=== PATIENT | male | born 2000 | race Caucasian/White ===

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

== ENCOUNTER 2019-07-27 17:39 | Emergency (ER) | payer BC, SELFPAY ==
[2019-07-27 17:41] VITALS: BP 149/90; PULSE 59; RESP 18; TEMP 36.3; O2SAT 97; BMI 22.2
--- NOTE | 2019-07-27 17:54 | ED.VIS.GEN ---
History of Present Illness Chief Complaint: Foreign Body Informant: Patient, Family Onset: Today Current Severity: Mild Narrative: Patient reports he has some roast beef stuck in his esophagus, eating roast beef when it got stuck midsternal area, he cannot pass that sensation he is trying to drink water it comes up, he has had this happen before but usually is able to pass the food bolus, he did not eat anything with bones just roast beef, he was not been seen by GI for this condition as again every time this happens usually the food will pass this all occurred about 30 minutes ago he is in no distress he is having no stridor no drooling he has no past history no meds no allergies Past Medical History - Allergies and Home Meds Allergies/Adverse Reactions: Allergies No Known Allergies Allergy (Verified 07/27/19 17:40) Primary Care Physician: Care Physician,No Primary [Primary Care Provider] - Past Medical History: - - Denies any past history reports this is happened to him before usually the food will pass Smoking Status: Never smoker Review of Systems General: Denies: Chills, Fever, Sweats Eyes: Denies: Visual changes - bilaterally, Diplopia ENT: Denies: Rhinorrhea, Sore throat Cardiovascular: Denies: Chest pain, Palpitations Respiratory: Denies: Dyspnea, Cough, Dyspnea on exertion Gastrointestinal: Denies: Abdominal pain, Nausea, Vomiting, Diarrhea, Melena, Hematochezia Genitourinary: Denies: Dysuria, Hematuria, Frequency Musculoskeletal: Denies: Back pain, Extremity Pain Skin: Denies: Rash, Wounds Neurological: Denies: Headache, Weakness, Numbness Physical Exam Vital Signs/Narrative: Vital Signs Temp Pulse Resp BP Pulse Ox 07/27/19 17:41 97.4 F L 59 L 18 149/90 H 97 General: Well nourished, Well developed, No Acute Distress Head: Normocephalic, Atraumatic Eyes: Perrl, EOMI ENT: Moist mucous membranes, No rhinorrhea Neck: Supple, Nontender Cardiovascular: Regular rate, Regular rhythm, No murmurs Respiratory: No distress, CTA bilaterally, Chest nontender Abdomen: Soft, Nontender, Nondistended, Normal bowel sounds Back: Nontender, Normal Inspection Extremities: Nontender, No edema Skin: Normal color, No rash Neurological: Alert, Oriented x3, Cranial nerves II-XII grossly intact, Normal Strength, Normal Sensation Psychological: Normal affect, Normal Mood Diagnostic/Tx/Re-eval - Medical Decision Making Explained to the mother and the patient that the specialist who would normally see him for this condition at this institution are not available they understand I explained he should be seen at a tertiary care center in [facility] they understand and will consider which of those centers they would prefer and go to 1 of those tertiary care centers today for further evaluation treatment the mother prefers potentially going to [facility] she works there, we will try to call the facility to determine if GI is available if not she will likely take him to [facility] Spoke with the [facility] emergency department indicate they do have GI coverage and understand the patient will be coming there for evaluation Home stable Impression food impaction ED Disposition - Plan for ED Patient: Diagnosis: Food impaction of esophagus Instructions: ESOPHAGEAL FOREIGN BODY, Resolved Referrals: Care Physician,No Primary [Primary Care Provider] - Additional Instructions: Please go directly today to [facility] or [facility] to be seen for this condition, as this is not resolved
--- NOTE | 2019-07-27 18:27 | ED.RN ---
DR. MORALES APPROACHED REGARDING PAGING SURGEONS PRIOR TO DISCHARGING PATIENT TO ANOTHER FACILITY. PER DR. SALGUERO THE TWO SURGEONS THAT ARE ON RIGHT NOW WILL NOT SCOPE PATIENTS.
--- NOTE | 2019-07-27 18:31 | ED.RN ---
PT NOW ABLE TO SWALLOW WATER AND BELIEVES THAT FOOD HAS PASSED.
--- NOTE | 2019-07-27 18:33 | ED.RN ---
DR. MORALES AWARE THAT PT BELIEVES FOOD HAS PASSED AND THAT PT IS ABLE TO SWALLOW WATER WITHOUT ANY ISSUES. DR. MORALES STATES TO HAVE PT FOLLOW UP WITH GI DOCTOR AND FOLLOW UP IN [facility] IF HE HAS ANY FURTHER ISSUES TONIGHT. PT AND PT'S FAMILY VERBALIZE AN UNDERSTANDING. REVIEWED D/C INSTRUCTIONS, FOLLOW UP CARE, AND S/S THAT WOULD WARRANT A RETURN TO THE ED WITH PT. PT VERBALIZED AN UNDERSTANDING AND DENIES FURTHER QUESTIONS FOR THIS RN. PT SKIN P/W/D, RESP EVEN AND UNLABORED, PT A&O X 3, NO DISTRESS NOTED. PT AMBULATED OUT OF ED, GAIT STEADY.
[2019-07-27 18:36] VITALS: RESP 16
== END 2019-07-27 18:36 | disposition home or self-care (01) ==
LOC: ED 18:17
PROVIDERS: Emergency Provider Emergency Medicine
DX: T18.128A Food in esophagus causing other injury, initial encounter (principal)
CPT/HCPCS: 99282

== ENCOUNTER 2023-10-07 12:40 | Day surgery (SDC) | payer BC, SELFPAY ==
--- NOTE | 2023-10-06 | ESO_PTH ---
PATHOLOGY RESULTS PATIENT: RICKY KING LOC: EN U#:[id number] AGE/SX: 23/M ROOM: RE10/07/[address]: Dr. Too Red DO : 2000 BED: DIS: 10/07/2023 SPEC #: [id number] RECD: 10/09/23 08:10 STATUS: COSTA REWilliam #: [id number] TIFFANIE: 10/06/23 00:[address]: Too Red DEPT: SURGICAL PATHOLOGY RECD BY: Suzy Brewer ENTERED: 10/09/23 08:10 SP TYPE: OLMAN BAHENA DR: Dr. Boaz Johns DO Tissues: Esophagus, NOS Procedures: Special Stain Group II Surgery Specimen Level IV Alcian Blue/PAS (control) HEADER OPERATION: EGD with basket retrieval and biopsy PRE-OP DIAGNOSIS: Foreign body TISSUE SUBMITTED: Distal esophagus biopsy MICROSCOPIC DIAGNOSIS Distal esophagus, biopsy: Fragments of gastroesophageal mucosa with ulceration, acute and chronic inflammation, granulation tissue reaction and reactive epithelial changes. Intestinal metaplasia (goblet cell metaplasia) not identified. See comment. TONEY:mari 10/10/2023 COMMENT Alcian blue/PAS stain with matched control is used in the evaluation of the specimen. The specimen predominantly consists of squamous mucosa. Case has been reviewed in consultation with Dr. Valentine who concurs with the above diagnosis. IDC:AM MICROSCOPIC DESCRIPTION Slides are reviewed. GROSS DESCRIPTION Received in fixative is one container labeled with the patient's name and designated distal esophagus biopsy. The specimen consists of multiple irregular fragments of light martin soft tissue that in aggregate measure 0.5 x 0.5 x 0.1 cm. The specimen is totally submitted in one cassette. / TONEY:mari 10/09/2023 TC:2 CPT: 93969, 05043
[2023-10-07] VITALS (8 sets, daily range): BP systolic 114–151; BP diastolic 70–113; PULSE 72–106; RESP 16–18; TEMP 36.6; O2SAT 96–100; BMI 22.8
--- NOTE | 2023-10-07 12:56 | EX.ED.DYSGE1 ---
HPI <JOSE Tobin - Last Filed: 10/07/23 17:03> History of Present Illness Chief Complaint: Foreign Body Narrative Narrative: Patient is a 23-year-old male with no send medical history who presents to the emergency department for concern of food bolus stuck in his throat. Patient states he was eating sausage soup, evidence for spice he swallowed a piece of sausage and felt to get stuck. He has been trying to water however it immediately comes up. He cannot vomit. He is spitting out his saliva. He has had this happen in the past. Patient had a food bolus in 2018, had a EGD with a dilation on [address] [facility]. Patient has had minimal problems since then. Patient denies any chest pain or shortness of breath. PFSH <JOSE Tobin - Last Filed: 10/07/23 17:03> [facility] Medical History (Updated 10/07/23 @ 16:[address] Gage Friend, DO) MDD (major depressive disorder), single episode, severe Home Medications multivitamin with minerals 1 ea PO DAILY 07/27/19 [History Last Taken Unknown] pantoprazole 40 mg tablet,delayed release (Protonix) 40 mg PO .daily #30 tabs 10/07/23 [Rx Last Taken Unknown] Allergy/AdvReac Type Severity Reaction Status Date / Time No Known Allergies Allergy Verified 10/07/23 12:43 Family History (Updated 09/14/18 @ 10:33 by JOSE Damon) Father Hyperlipemia Social History Smoking Status: Never smoker ROS <JOSE Tobin - Last Filed: 10/07/23 17:03> ROS ED ROS Narrative Constitutional: Negative for fever, chills, weight loss, weakness Eyes: Negative for vision loss, vision change, double vision ENT: Negative for any sore throat, ear pain, congestion Cardiovascular: Negative for any chest pain, tightness, palpitations Respiratory: Negative for any cough, sputum production, hemoptysis, dyspnea, dyspnea on exertion, orthopnea Gastrointestinal: Negative for any abdominal pain, nausea, vomiting, diarrhea, constipation, blood in stool, blood in vomit. Positive for difficulty swallowing : Negative for any urinary frequency, dysuria, retention, blood in urine Muscle skeletal: Negative for any myalgias, arthralgias, neck pain, back pain Neurological: Negative for any headache, syncope, paresthesias, dizziness Skin: Negative for any rashes, lumps, itching, abrasions, lacerations Psychiatric: Negative for any depression, anxiety, stress, suicidal ideation, homicidal ideation Hematologic: Negative for any easy bruising, excessive bruising, easy bleeding Allergies: Negative for any eczema, hives, rash EXAM <JOSE Tobin - Last Filed: 10/07/23 17:03> Physical Exam Narrative Exam Narrative: Vital signs reviewed. Patient is in no distress. Patient is able to spit up his saliva. HEET: Head normocephalic atraumatic, TMs clear bilaterally. Posterior pharynx is clear, moist mucous membranes. Nares clear bilaterally. Neck: Supple with no lymphadenopathy or tenderness. No signs of meningismus. Cardiac: Regular rate and rhythm no murmurs gallops or rubs, equal peripheral pulses bilaterally. Respiratory: Lungs clear to auscultation bilaterally. No chest tenderness. Abdomen: Soft, nontender, nondistended. No abdominal bruit or pulsatile masses. No hepatosplenomegaly Extremities: No peripheral edema, no signs of gross trauma or deformity. Active full range of motion of all extremities. Neuro: Cranial nerves II through XII intact, no focal neurological deficits. Skin: Clean dry and intact with no rash, purpura, petechiae, vesicles or pustules. Backs/flank: No CVA tenderness, no midline spinal tenderness, no deformity. Psych: Normal mood and affect. No SI, HI or acute psychosis. Const Vital Signs: 10/07/23 12:40 10/07/23 13:15 10/07/23 16:14 Temperature 98 F Temperature Source Temporal Pulse Rate 72 72 Respiratory Rate 18 16 Respiratory Effort Normal Non-Labored Respiratory Pattern Normal Blood Pressure 151/113 H 133/78 H Blood Pressure Mean 125 96 Blood Pressure Source Blood Pressure Position Blood Pressure Location Baseline BP Pulse Ox 100 98 Oxygen Delivery Method Room Air Room Air 10/07/23 17:02 10/07/23 17:03 10/07/23 17:05 Temperature 97.8 F Temperature Source Temporal Pulse Rate 73 106 H 106 H Respiratory Rate 16 16 16 Respiratory Effort Respiratory Pattern Normal Blood Pressure 128/74 H 127/86 H 127/83 H Blood Pressure Mean 92 99 97 Blood Pressure Source Monitor Monitor Blood Pressure Position Semi-Fowlers Semi-Fowlers Blood Pressure Location Right Arm Left Arm Baseline BP 133/78 133/78 Pulse Ox 98 96 96 Oxygen Delivery Method Room Air Room Air 10/07/23 17:10 10/07/23 17:17 10/07/23 17:30 Temperature 97.8 F Temperature Source Temporal Pulse Rate 96 85 Respiratory Rate 16 16 Respiratory Effort Respiratory Pattern Blood Pressure 127/70 H 114/75 Blood Pressure Mean 89 88 Blood Pressure Source Monitor Monitor Blood Pressure Position Semi-Fowlers Semi-Fowlers Blood Pressure Location Right Arm Right Arm Baseline BP 133/78 133/78 133/78 Pulse Ox 96 99 Oxygen Delivery Method Room Air Room Air 10/07/23 17:30 Temperature Temperature Source Pulse Rate Respiratory Rate Respiratory Effort Respiratory Pattern Normal Blood Pressure Blood Pressure Mean Blood Pressure Source Blood Pressure Position Blood Pressure Location Baseline BP Pulse Ox Oxygen Delivery Method Positive well nourished and well developed General Appearance ED: well developed <Dr. Josh Smith, DO - Last Filed: 10/08/23 11:22> Physical Exam Const Vital Signs: 10/07/23 12:40 10/07/23 13:15 10/07/23 16:14 Temperature 98 F Temperature Source Temporal Pulse Rate 72 72 Respiratory Rate 18 16 Respiratory Effort Normal Non-Labored Respiratory Pattern Normal Blood Pressure 151/113 H 133/78 H Blood Pressure Mean 125 96 Blood Pressure Source Blood Pressure Position Blood Pressure Location Baseline BP Pulse Ox 100 98 Oxygen Delivery Method Room Air Room Air 10/07/23 17:02 10/07/23 17:03 10/07/23 17:05 Temperature 97.8 F Temperature Source Temporal Pulse Rate 73 106 H 106 H Respiratory Rate 16 16 16 Respiratory Effort Respiratory Pattern Normal Blood Pressure 128/74 H 127/86 H 127/83 H Blood Pressure Mean 92 99 97 Blood Pressure Source Monitor Monitor Blood Pressure Position Semi-Fowlers Semi-Fowlers Blood Pressure Location Right Arm Left Arm Baseline BP 133/78 133/78 Pulse Ox 98 96 96 Oxygen Delivery Method Room Air Room Air 10/07/23 17:10 10/07/23 17:17 10/07/23 17:30 Temperature 97.8 F Temperature Source Temporal Pulse Rate 96 85 Respiratory Rate 16 16 Respiratory Effort Respiratory Pattern Blood Pressure 127/70 H 114/75 Blood Pressure Mean 89 88 Blood Pressure Source Monitor Monitor Blood Pressure Position Semi-Fowlers Semi-Fowlers Blood Pressure Location Right Arm Right Arm Baseline BP 133/78 133/78 133/78 Pulse Ox 96 99 Oxygen Delivery Method Room Air Room Air 10/07/23 17:30 Temperature Temperature Source Pulse Rate Respiratory Rate Respiratory Effort Respiratory Pattern Normal Blood Pressure Blood Pressure Mean Blood Pressure Source Blood Pressure Position Blood Pressure Location Baseline BP Pulse Ox Oxygen Delivery Method [facility] <JOSE Tobin - Last Filed: 10/07/23 17:03> [facility] Treatment and Re-Evaluation :: Patient appears to be in no obvious distress. Patient presenting to the emergency department for food impaction to his esophagus. Differential diagnosis includes esophageal stricture, food impaction, esophageal injury. Patient will have an IV established, patient be given glucagon then tried Coca-Cola or other carbonated beverage. Will reevaluate. Patient was given glucagon, try to drink a carbonated beverage, this did not help. Patient continues to be unable to swallow his saliva, secretions. He is continually spitting out into a bag. I spoke with Dr. Red who is a global ceo, he will come and evaluate the patient. Neda will evaluate the patient in the OR for an EGD I have personally performed a face to face assessment of the patient and have reviewed the MARGY Note. I performed a substantive portion of the visit including all aspects of the following. My mcdonald findings include: History is patient feels there is a meat/sausage bolus in the esophagus. This has happened before. Exam is patient spitting out saliva and drink. No obvious distress. Medical Decison Making No response to glucagon or Coke. Dr. Red will be in to evaluate the patient for endoscopy. <Dr. Josh Smith DO - Last Filed: 10/08/23 11:22> [facility] Treatment and Re-Evaluation :: Patient appears to be in no obvious distress. Patient presenting to the emergency department for food impaction to his esophagus. Differential diagnosis includes esophageal stricture, food impaction, esophageal injury. Patient will have an IV established, patient be given glucagon then tried Coca-Cola or other carbonated beverage. Will reevaluate. Patient was given glucagon, try to drink a carbonated beverage, this did not help. Patient continues to be unable to swallow his saliva, secretions. He is continually spitting out into a bag. I spoke with Dr. Red who is a global ceo, he will come and evaluate the patient I have personally performed a face to face assessment of the patient and have reviewed the MARGY Note. I performed a substantive portion of the visit including all aspects of the following. My mcdonald findings include: History is patient feels there is a meat/sausage bolus in the esophagus. This has happened before. Exam is patient spitting out saliva and drink. No obvious distress. Medical Decison Making No response to glucagon or Coke. Dr. Red will be in to evaluate the patient for endoscopy. Discharge Plan Disposition Disposition: Acute Care Hospital [facility] Discharge Date/Time: 10/07/23 17:06
[2023-10-07] MEDS: Glucagon 1 MG/ML Syringe IV (13:22)
--- OUTSIDE RECORDS SUMMARY | 2023-10-07 13:35 | XMS RPT_ITS | CCD ---
Author Name Unknown Address [address] [place] [address] Organization [facility] Care Team Providers Care Combination Man Name Role Phone LALITHA AWAN (DYEING MACHINE FEEDER) Attending UnavailMINDY Esquivel V Admitting Unavailable MINDY SHERIFF V Attending Unavailable AA NO PCP, NO PCP Primary Care Unavailable RORY, SALBADOR J Admitting Unavailable RORY SALBADOR J Attending Unavailable AA NO PCP, NO PCP Primary Care Unavailable KITA KAMARA Consulting Unavailable RORY, SALBADOR J Admitting Unavailable RORYLINGY J Attending Unavailable AA NO PCP, NO PCP Primary Care Unavailable PHYSICIAN, NONE Primary Care Physician Unavailab le IRIS SALDIVAR DO Primary Care Physician IRIS SALDIVAR DO Attending Unavailable IRIS SALDIVAR DO Primary Care Unavailable IRIS SALDIVAR DO Attending Unavailable PHYSICIAN, NONE Primary Care Unavailable Allergies Allergy Classification Reported Allergen(s) Allergy Type Date of Onset Reaction(s) Facility (1 source) Cat; Translations: [CATS] Propensity to adverse reactions (disorder) 3 [facility] Repository (1 source) Seasonal allergy; Translations: [SEASONAL ALLERGIES] Propensity to adverse reactions (disorder) 3 [facility] Repository (2 sources) seasonal enviromental Allergy to substance Sneezing (finding) [facility] Medications Current Medications Medication Drug Class(es) Dates Sig (Normalized) Sig (Original) fluticasone propionate 0.05 mg/actuat metered dose nasal spray (2 sources) Corticosteroid Start: 03-14-2022 take 1 dose nasal route once daily fluticasone 50 mcg/inh NASAL spray Dose = 1 spray(s), Nostril, each, qDay, # 16 gram(s), 2 Refill(s), Pharmacy: [id number], 172.4, cm, 03/14/22 16:19:00 EDT, Height Start Date: 03/14/22 Status: Ordered melatonin 3 mg oral tablet (2 sources) Start: 03-14-2022 take 1 dose by mouth once daily at bedtime melatonin Dose : 3 mg =, Oral, qHS, 0 Refill(s) Start Date: 03/14/22 Status: Ordered Propionate (2 sources) Start: 03-14-2022 Propionate Propionate, 0 Refill(s) Start Date: 03/14/22 Status: Ordered Problems Problem Classification Problem Date Documented Da te Episodic/Chronic Allergic reactions (2 sources) Environmental allergy 03-14-2022 Episodic Esophageal disorders (1 source) Eosinophilic esophagitis; Translations: [EOSINOPHILIC ESOPHAGITIS] Onset: 04-02-2020 Chronic Immunizations and screening for infectious disease (2 sources) Encounter for screening for other viral diseases; Translations: [ENC SCREENING FOR OTH VIRAL DZ] Onset: 03-10-2020 Episodic Other aftercare (1 source) Other jail (current) drug therapy; Translations: [OTH FUR EXAMINER CURRENT DRUG THERAPY] Onset: 04-02-2020 Episodic Other bone disease and musculoskeletal deformities (1 source) Costal chondritis 01-20-2023 Episodic Other gastrointestinal disorders (2 sources) Dysphagia, unspecified; Translations: [DYSPHAGIA UNSPECIFIED] Onset: 04-02-2020 Episodic Other injuries and conditions due to external causes (1 source) Food in pharynx causing other injury, initial encounter; Translations: [FOOD PHARYNX CAUS OTH INJ INIT ENC] Onset: 02-24-2020 Other skin disorders (1 source) Skin lesion 01-20-2023 Episodic Results Test Name Value Interpretation Reference Range Facil ity Encounters Encounter Date Encounter Type Care Provider Facility Start: 01-20-2023 End: 01-21-2023 ambulatory IRIS SALDIVAR DO Facility:B Start: 01-20-2023 End: 01-20-2023 Patient encounter procedure IRIS SALDIVAR DO [facility] Start: 03-19-2022 End: 03-20-2022 ambulatory IRIS SALDIVAR DO Facility:B Start: 03-19-2022 End: 03-19-2022 Patient encounter procedure IRIS SALDIVAR DO [facility] Start: 03-09-2020 End: 03-09-2020 Patient encounter procedure SALBADOR Car [facility] Start: 03-07-2020 End: 03-08-2020 Patient encounter procedure SALBADOR [facility] Start: 02-08-2020 End: 02-08-2020 Emergency department patient visit MINDY SHERIFF [facility] Start: 11-13-2018 End: 11-29-2018 Patient encounter procedure LALITHA (XAVIER) PODLOGAR [facility] Procedures Date Procedure Procedure Detail Performing Clinician Start: 09-25-2019 Esophagogastroduodenoscopy gastric outlet reduction IRIS SALDIVAR DO Immunizations Immunization Date Immunization Notes Care Provider Fa [facility] 01-20-2023 tetanus and diphther ia toxoids, adsorbed, preservative free, for adult use (5 Lf of tetanus toxoid and 2 Lf of diphtheria toxoid); Translations: [Tenivac] IRIS SALDIVAR DO [facility] 08-14-2021 SARS-CoV-2 mRNA (tozinameran) vaccine IRIS SALDIVAR DO [facility] 07-24-2021 SARS-CoV-2 mRNA (tozinameran) vaccine IRIS SALDIVAR DO [facility] Payers Date Payer Category Payer Unknown [id number] [id number] 2000 Unknown [id number] [id number] [id number] 1999 Unknown [id number] [id number] [id number] 1999 Unknown [id number] [id number] [id number] 1999 Unknown [id number] 2.16.8 [id number] 1959 Unknown [id number] Social History Date Type Detail Facility Start: 03-14-2022 Tobacco smoking status Never s moked tobacco (finding) [facility] Sex Assigned At Sex [facility] Evaluation + Plan note Note Date & Type Note Facility Evaluation + Plan note No data available for this section [facility] Evaluation + Plan note Note Date & Type Note Facility Evaluation + Plan note Future Appointments Appointment Date:02/10/2023 10:30:00 AM Scheduled Provider:IRIS SALDIVAR DO Location:[facility] Appointment Type:PC Office Procedure [facility] Hospital Discharge instructions Note Date & Type Note Facility Hospital Discharge instructions No data available for this section [facility] Progress note Note Date & Type Note Facility Progress note No data available for this section [facility] Summary Purpose Family History No Family History Records FoundNo Family History Records FoundNo Family History Records FoundNo Family History Records Found Advance Directives No Advanced Directives Records FoundNo Advanced Directives Records FoundNo Advanced Directives Records FoundNo Advanced Directives Records Found Additional Source Comments (unrecognized sect ion and content) No Status Records FoundNo Status Records FoundNo Status Records FoundNo Status Records Found INFORMATION SOURCE (unrecogn ized section and content) DATE CREATED AUTHOR AUTHOR'S ORGANIZ ATION 04/17/2020 [facility] DATE CREATED AUTHOR AUTHOR'S ORGANIZ ATION 04/17/2020 [facility] DATE CREATED AUTHOR AUTHOR'S ORGANIZ ATION 01/23/2023 [facility] ([place] Patient Care team informatio n (unrecognized section and content) Care Team Personnel Name: IRIS SALDIVAR DO Position: P4 Physician - Primary Care Member Role: Primary Care Physician Address: Address: [address] [place] [address]- Care Team Related Persons Name: KATHIE KING Address: Home [address] [place], [place] [id number] Address: [facility] [address] [place] [phone] FOR RECORDS PERTAINING TO PATIENTS WHO ARE OR HAVE BEEN ENROLLED IN A CHEMICAL DEPENDENCY/SUBSTANCEABUSE PROGRAM, SOME INFORMATION MAY BE OMITTED. This clinical summary was aggregated from multiple sources. Caution should be exercised in using it in the provision of clinical care. This summary normalizes information from multiple sources, and as a consequence, information in this document may materially change the coding, format and clinical context of patient data. In addition, data may be omitted in some cases. CLINICAL DECISIONS SHOULD BE BASED ON THE PRIMARY CLINICAL RECORDS. [facility] [facility]. provides no warranty or guarantee of the accuracy or completeness of information in this document.
--- NOTE | 2023-10-07 16:31 | HP.PCM_ITS ---
History and Physical Date of Admission: 10/07/23 23-year-old male with no send medical history who presents to the emergency department for concern of food bolus stuck in his throat. Patient states he was eating sausage soup, evidence for spice he swallowed a piece of sausage and felt to get stuck. He has been trying to water however it immediately comes up. He cannot vomit. He is spitting out his saliva. He has had this happen in the past. Patient had a food bolus in 2018, had a EGD with a dilation on 2021 at [facility]. Patient has had minimal problems since then. Patient denies any chest pain or shortness of breath. [facility] <JOSE Tobin - Last Filed: 10/07/23 14:08> [facility] Medical History MDD (major depressive disorder), single episode, severe Home Medications multivitamin with minerals 1 ea PO DAILY 07/27/19 [History Last Taken Unknown] Allergy/AdvReac Type Severity Reaction Status Date / Time No Known Allergies Allergy Verified 10/07/23 12:43 Family History (Updated 09/14/18 @ 10:33 by JOSE Damon) Father Hyperlipemia Social History Smoking Status: Never smoker ROS <JOSE Tobin - Last Filed: 10/07/23 14:08> ROS ED ROS Narrative Constitutional: Negative for fever, chills, weight loss, weakness Eyes: Negative for vision loss, vision change, double vision ENT: Negative for any sore throat, ear pain, congestion Cardiovascular: Negative for any chest pain, tightness, palpitations Respiratory: Negative for any cough, sputum production, hemoptysis, dyspnea, dyspnea on exertion, orthopnea Gastrointestinal: Negative for any abdominal pain, nausea, vomiting, diarrhea, constipation, blood in stool, blood in vomit. Positive for difficulty swallowing : Negative for any urinary frequency, dysuria, retention, blood in urine Muscle skeletal: Negative for any myalgias, arthralgias, neck pain, back pain Neurological: Negative for any headache, syncope, paresthesias, dizziness Skin: Negative for any rashes, lumps, itching, abrasions, lacerations Psychiatric: Negative for any depression, anxiety, stress, suicidal ideation, homicidal ideation Hematologic: Negative for any easy bruising, excessive bruising, easy bleeding Allergies: Negative for any eczema, hives, rash EXAM <JOSE Tobin - Last Filed: 10/07/23 14:08> Physical Exam Narrative Exam Narrative: Vital signs reviewed. Patient is in no distress. Patient is able to spit up his saliva. HEET: Head normocephalic atraumatic, TMs clear bilaterally. Posterior pharynx is clear, moist mucous membranes. Nares clear bilaterally. Neck: Supple with no lymphadenopathy or tenderness. No signs of meningismus. Cardiac: Regular rate and rhythm no murmurs gallops or rubs, equal peripheral pulses bilaterally. Respiratory: Lungs clear to auscultation bilaterally. No chest tenderness. Abdomen: Soft, nontender, nondistended. No abdominal bruit or pulsatile masses. No hepatosplenomegaly Extremities: No peripheral edema, no signs of gross trauma or deformity. Active full range of motion of all extremities. Neuro: Cranial nerves II through XII intact, no focal neurological deficits. Skin: Clean dry and intact with no rash, purpura, petechiae, vesicles or pustules. Backs/flank: No CVA tenderness, no midline spinal tenderness, no deformity. Psych: Normal mood and affect. No SI, HI or acute psychosis. Const Vital Signs: 10/07/2411:40 10/07/2412:15 Temperature 98 F Temperature Source Temporal Pulse Rate 72 Respiratory Rate 18 Respiratory Effort Normal Non-Labored Respiratory Pattern Normal Blood Pressure 151/113 H Blood Pressure Mean 125 Pulse Ox 100 Oxygen Delivery Method Room Air Positive well nourished and well developed General Appearance ED: well developed <Dr. Josh Smith DO - Last Filed: 10/07/23 14:56> Physical Exam Const Vital Signs: 10/07/2411:40 10/07/2412:15 Temperature 98 F Temperature Source Temporal Pulse Rate 72 Respiratory Rate 18 Respiratory Effort Normal Non-Labored Respiratory Pattern Normal Blood Pressure 151/113 H Blood Pressure Mean 125 Pulse Ox 100 Oxygen Delivery Method Room Air Treatment and Re-Evaluation :: Patient appears to be in no obvious distress. Patient presenting to the emergency department for food impaction to his esophagus. Differential diagnosis includes esophageal stricture, food impaction, esophageal injury. Patient will have an IV established, patient be given glucagon then tried Coca- Cola or other carbonated beverage. Will reevaluate. Patient was given glucagon, try to drink a carbonated beverage, this did not help. Patient continues to be unable to swallow his saliva, secretions. He is continually spitting out into a bag. I spoke with Dr. Red who is a imaging manager, he will come and evaluate the patient <Dr. Josh Smith, DO - Last Filed: 10/07/23 14:56> [facility] Treatment and Re-Evaluation :: Patient appears to be in no obvious distress. Patient presenting to the emergency department for food impaction to his esophagus. Differential diagnosis includes esophageal stricture, food impaction, esophageal injury. Patient will have an IV established, patient be given glucagon then tried Coca- Cola or other carbonated beverage. Will reevaluate. Patient was given glucagon, try to drink a carbonated beverage, this did not help. Patient continues to be unable to swallow his saliva, secretions. He is continually spitting out into a bag. I have personally performed a face to face assessment of the patient and have reviewed the MARGY Note. I performed a substantive portion of the visit including all aspects of the following. My mcdonald findings include: History is patient feels there is a meat/sausage bolus in the esophagus. This has happened before. Assessment & Plan Assessment/Plan (1) Foreign body: PLAN: He will undergo an upper endoscopy to evaluate his upper GI tract. He was explained alternatives, risk, benefits include not withstanding bleeding, infection, sepsis, perforation, need for emergent urgent . He will have an ASA of 3.
--- OUTSIDE RECORDS SUMMARY | 2023-10-07 16:37 | XMS RPT_ITS | CCD ---
Author Name Unknown Address [address] [place] [address] Organization [facility] Care Team Providers Care Logistics Planning Manager Name Role Phone LALITHA AWAN (MOVIE THEATER MANAGER) Attending UnavailMINDY Esquivel V Admitting Unavailable MINDY [...] [CATS] Propensity to adverse reactions (disorder) 3 [facility] Repository (1 source) Seasonal allergy; Translations: [SEASONAL ALLERGIES] Propensity to adverse reactions (disorder) 3 [facility] Repository (2 sources) seasonal enviromental Allergy to substance Sneezing (finding) [facility] Medications Current Medications Medication Drug Class(es) Dates Sig (Normalized) Sig (Original) fluticasone propionate 0.05 mg/actuat metered dose nasal spray (2 sources) Corticosteroid Start: 03-14-2022 take 1 dose nasal route once daily fluticasone 50 mcg/inh NASAL spray Dose = 1 spray(s), Nostril, each, qDay, # 16 gram(s), 2 Refill(s), Pharmacy: [id number], 172.4, cm, 03/14/22 16:19:00 EDT, [...] 03-10-2020 Episodic Other aftercare (1 source) Other half-way (current) drug therapy; Translations: [OTH ECONOMIC HISTORY TEACHER CURRENT DRUG THERAPY] Onset: 04-02-2020 Episodic Other [...] 01-20-2023 Patient encounter procedure IRIS SALDIVAR DO [facility] Start: 03-19-2022 End: 03-20-2022 ambulatory IRIS SALDIVAR DO Facility:B Start: 03-19-2022 End: 03-19-2022 Patient encounter procedure IRIS SALDIVAR DO [facility] Start: 03-09-2020 End: 03-09-2020 Patient encounter procedure [facility] Start: 03-07-2020 End: 03-08-2020 Patient encounter procedure [facility] Start: 02-08-2020 End: 02-08-2020 Emergency department patient visit MINDY SHERIFF [facility] Start: 11-13-2018 End: 11-29-2018 Patient encounter procedure LALITHA (XAVIER) PODLOGAR [facility] Procedures Date Procedure Procedure Detail Performing Clinician Start: 09-25-2019 Esophagogastroduodenoscopy gastric outlet reduction IRIS SALDIVAR DO Immunizations Immunization Date Immunization Notes Care Provider Fa [facility] 01-20-2023 tetanus and diphther ia toxoids, adsorbed, preservative free, for adult use (5 Lf of tetanus toxoid and 2 Lf of diphtheria toxoid); Translations: [Tenivac] IRIS SALDIVAR DO [facility] 08-14-2021 SARS-CoV-2 mRNA (tozinameran) vaccine IRIS SALDIVAR DO [facility] 07-24-2021 SARS-CoV-2 mRNA (tozinameran) vaccine IRIS SALDIVAR DO [facility] Payers Date Payer Category Payer Unknown [id number] 2.16.8 [id number] 1999 Unknown [id number] 2.16.8 [id number] 1999 Unknown [id number] 2.16.8 [id number] 1999 Unknown [id number] 2.16.8 [id number] 1999 Unknown [id number] 2.16.8 [id number] 1959 Unknown [id number] Social History Date Type Detail Facility Start: 03-14-2022 Tobacco smoking status Never s moked tobacco (finding) [facility] Sex Assigned At Sex [facility] Evaluation + Plan note Note Date & Type Note Facility Evaluation + Plan note No data available for this section [facility] Evaluation + Plan note Note Date & Type Note Facility Evaluation + Plan note Future Appointments Appointment Date:02/10/2023 10:30:00 AM Scheduled Provider:IRIS SALDIVAR DO Location:[facility] Appointment Type:PC Office Procedure [facility] Hospital Discharge instructions Note Date & Type Note Facility Hospital Discharge instructions No data available for this section [facility] Progress note Note Date & Type Note Facility Progress note No data available for this section [facility] Summary Purpose Family History No Family History [...] DATE CREATED AUTHOR AUTHOR'S ORGANIZ ATION 04/17/2020 [facility] DATE CREATED AUTHOR AUTHOR'S ORGANIZ ATION 04/17/2020 [facility] DATE CREATED AUTHOR AUTHOR'S ORGANIZ ATION 01/23/2023 [facility] ([place]) Patient Care team informatio n (unrecognized section and content) Care Team Personnel Name: IRIS SALDIVAR DO Position: P4 Physician - Primary Care Member Role: Primary Care Physician Address: Address: [address] [place] [address]- Care Team Related Persons Name: KATHIE KING Address: Home [address] [place], [place] [id number] Address: [facility] [address] [place] [address] [phone] FOR RECORDS PERTAINING TO PATIENTS WHO ARE [...] BE BASED ON THE PRIMARY CLINICAL RECORDS. [facility] Where I've Been [facility]. provides no warranty or guarantee of the accuracy or completeness of information in this document.
--- NOTE | 2023-10-07 16:59 | OP.CCLET_ITS ---
10/07/2023 Boaz Johns Do Re : Upper GI endoscopy procedure for Julian Dos Santos Dear Dr. Johns This procedure was performed on Saturday, October 07, 2023. My impressions and recommendations are as follows: Impressions : - Food was found in the esophagus. Removal was successful. - Severe Schatzki ring. Biopsied. Dilated. - Normal stomach. - Normal duodenal bulb. Recommendations : - Discharge patient to home. - Full liquid diet. - Continue present medications. - Await pathology results. - Repeat upper endoscopy in 2 months. My findings are described in the full procedure note, which is enclosed. If I can be of further assistance, please feel free to contact me at . Sincerely, Too Red, 10/07/2023 4:58:52 PM This report has been signed electronically.
--- NOTE | 2023-10-07 16:59 | OP.EGD_ITS ---
Patient Name: Julian Dos Santos Procedure Date: 10/07/2023 4:19 PM Date of : 2000 Age: 23 Procedure: Upper GI endoscopy Indications: Foreign body in the esophagus Providers: Too Red DO Medicines: Monitored Anesthesia Care Patient Profile: This is a 23 year old male. Refer to note in patient chart for documentation of history and physical. Patient has symptoms of acute dysphagia. Complications: No immediate complications. Procedure: Pre-Anesthesia Assessment: - Prior to the procedure, a History and Physical was performed, and patient medications and allergies were reviewed. The patient is competent. The risks and benefits of the procedure and the sedation options and risks were discussed with the patient. All questions were answered and informed consent was obtained. Patient identification and proposed procedure were verified by the physician in the pre-procedure area. Mental Status Examination: alert and oriented. Airway Examination: normal oropharyngeal airway and neck mobility. Respiratory Examination: clear to auscultation. CV Examination: normal. Prophylactic Antibiotics: The patient does not require prophylactic antibiotics. Prior Anticoagulants: The patient has taken no anticoagulant or antiplatelet agents. ASA Grade Assessment: II - A patient with mild systemic disease. After reviewing the risks and benefits, the patient was deemed in satisfactory condition to undergo the procedure. The anesthesia plan was to use monitored anesthesia care (MAC). Immediately prior to administration of medications, the patient was re-assessed for adequacy to receive sedatives. The heart rate, respiratory rate, oxygen saturations, blood pressure, adequacy of pulmonary ventilation, and response to care were monitored throughout the procedure. The physical status of the patient was re-assessed after the procedure. After obtaining informed consent, the endoscope was passed under direct vision. Throughout the procedure, the patient's blood pressure, pulse, and oxygen saturations were monitored continuously. The gastroscope was introduced through the mouth, and advanced to the duodenal bulb. The upper GI endoscopy was accomplished without difficulty. The patient tolerated the procedure well. Scope In: 4:47:37 PM Scope Out: 4:52:23 PM Total Procedure Duration Time 0 hours 4 minutes 46 seconds Findings: Food was found in the lower third of the esophagus, 40 cm from the incisors. Removal was accomplished with a Jones net. Verification of patient identification for the specimen was done by the physician. Estimated blood loss was minimal. A severe Schatzki ring was found in the lower third of the esophagus. Biopsies were taken with a cold forceps for histology. Verification of patient identification for the specimen was done. Estimated blood loss was minimal. A guidewire was placed and the scope was withdrawn. Dilation was performed with a Savary dilator with no resistance at 45 Fr. The dilation site was examined and showed no change. Estimated blood loss was minimal. The entire examined stomach was normal. The duodenal bulb was normal. Impression: - Food was found in the esophagus. Removal was successful. - Severe Schatzki ring. Biopsied. Dilated. - Normal stomach. - Normal duodenal bulb. Recommendation: - Discharge patient to home. - Full liquid diet. - Continue present medications. - Await pathology results. - Repeat upper endoscopy in 2 months. Procedure Code(s): --- Professional --- 65265, Esophagogastroduodenoscopy, flexible, transoral; with removal of foreign body(s) 94010, 51, Esophagogastroduodenoscopy, flexible, transoral; with insertion of guide wire followed by passage of dilator(s) through esophagus over guide wire 51639, 59, Esophagogastroduodenoscopy, flexible, transoral; with biopsy, single or multiple CPT copyright 2021 [employer]. All rights reserved. The codes documented in this report are preliminary and upon midlevel provider review may be revised to meet current compliance requirements. Too Red DO 10/07/2023 4:58:52 PM This report has been signed electronically. Number of Addenda: 0 Note Initiated On: 10/07/2023 4:19 PM
[2023-10-07] MEDS: 0.9% Normal Saline (1000mL) 1,000 ML 15 ML IV (17:14)
[2023-10-07] MEDS: Pantoprazole Sodium 40 MG in 0.9% Normal Saline (100mL MB+) 100 ML 330 MG IV (17:15)
== END 2023-10-07 17:34 | disposition home or self-care (01) ==
LOC: ED 16:04 → EN 16:35 → ACINP 16:36
PROVIDERS: Emergency Provider Emergency Medicine; Visit Provider Internal Medicine Gastroenterology
PROC: 0DJ08ZZ Inspection of Upper Intestinal Tract, Via Natural or Artificial Opening Endoscopic (ICD-10-PCS; CPT 43235; principal; 2023-10-07 16:30)
DX: T18.108A Unspecified foreign body in esophagus causing other injury, initial encounter (principal); F32.9 Major depressive disorder, single episode, unspecified
CPT/HCPCS: 43248; 43239; 43247; 88305; 88313; 99284; J7030; A4216; J1610; J2405

== ENCOUNTER 2023-12-04 06:35 | Day surgery (SDC) | payer BC, SELFPAY ==
[2023-11-29 13:55] VITALS: BMI 22.8
--- NOTE | 2023-12-04 | IMM_PTH ---
PATHOLOGY RESULTS PATIENT: RICKY KING LOC: EN U#:[id number] AGE/SX: 23/M ROOM: RE12/04/[address]: Dr. Too Red DO : 2000 BED: DIS: 12/04/2023 SPEC #: [id number] RECD: 12/05/23 16:10 STATUS: [place] REQ #: [id number] TIFFANIE: 12/04/23 00:[address]: Too Red DEPT: IMMUNOHISTOCHEMISTRY RECD BY: Percy Ortiz ENTERED: 12/05/23 16:11 SP TYPE: IMMUNO OTHR DR: Dr. Boaz Johns, Tissues: Esophagus, NOS Procedures: P53 (initial) KI-67 (add) PHYSICIAN & INSTITUTION [place] [id number] SPECIMEN INFORMATION: Tissue Source: A- Distal esophagus Clinical Info: Foreign body follow up Specimen Number: [id number] CPT code: 56442,32054 METHODOLOGY: Deparaffinized sections of prefer/formalin-fixed tissue or PAP/DQ stained slides are incubated with monoclonal/polyclonal antibodies/oligonucleotide probes. Localization is made via biotin free immunoperoxidase method. Appropriate controls are performed and reacted as expected. Results on target cell population are indicated in the following table: RESULTS: ANTIBODY / CLONE RESULT Block A P53 (DO-7) negative (null pattern) Ki-67 (30-9) positive, very low These tests were developed and their performance characteristics determined by [facility]. They may not have been cleared or approved by the U.S. Food and Drug Administration. The FDA has determined that such clearance or approval is not necessary. The above immunohistochemical/dualISH markers are ordered and reviewed by the Pathologist. INTERPRETATION: A. Distal esophagus, biopsy; Negative for dysplasia. TONEY/ 12/06/23
--- OUTSIDE RECORDS SUMMARY | 2023-12-04 06:38 | XMS RPT_ITS | CCD ---
Author Name Unknown Address [address] [place] [address] Organization [facility] Care Team Providers Care Operations Support Representative Name Role Phone LALITHA AWAN (SCIENTIFIC TECHNICAL WRITER) Attending UnavailMINDY Esquivel V Admitting Unavailable MINDY [...] [CATS] Propensity to adverse reactions (disorder) 3 [facility] Repository (1 source) Seasonal allergy; Translations: [SEASONAL ALLERGIES] Propensity to adverse reactions (disorder) 3 [facility] Repository (2 sources) seasonal enviromental Allergy to substance Sneezing (finding) [facility] Medications Current Medications Medication Drug Class(es) Dates Sig (Normalized) Sig (Original) fluticasone propionate 0.05 mg/actuat metered dose nasal spray (2 sources) Corticosteroid Start: 03-14-2022 take 1 dose nasal route once daily fluticasone 50 mcg/inh NASAL spray Dose = 1 spray(s), Nostril, each, qDay, # 16 gram(s), 2 Refill(s), Pharmacy: [id number], 172.4, cm, 03/14/22 [...] 03-10-2020 Episodic Other aftercare (1 source) Other terminal computer operator (current) drug therapy; Translations: [OTH DETENTION CURRENT DRUG THERAPY] Onset: 04-02-2020 Episodic Other [...] 01-20-2023 Patient encounter procedure IRIS SALDIVAR DO [facility] Start: 03-19-2022 End: 03-20-2022 ambulatory IRIS SALDIVAR DO Facility:B Start: 03-19-2022 End: 03-19-2022 Patient encounter procedure IRIS SALDIVAR DO [facility] Start: 03-09-2020 End: 03-09-2020 Patient encounter procedure [facility] Start: 03-07-2020 End: 03-08-2020 Patient encounter procedure [facility] Start: 02-08-2020 End: 02-08-2020 Emergency department patient visit MINDY SHERIFF [facility] Start: 11-13-2018 End: 11-29-2018 Patient encounter procedure LALITHA (XAVIER) PODLOGAR [facility] Procedures Date Procedure Procedure Detail Performing Clinician Start: 09-25-2019 Esophagogastroduodenoscopy gastric outlet reduction IRIS SALDIVAR DO Immunizations Immunization Date Immunization Notes Care Provider Fa [facility] 01-20-2023 tetanus and diphther ia toxoids, adsorbed, preservative free, for adult use (5 Lf of tetanus toxoid and 2 Lf of diphtheria toxoid); Translations: [Tenivac] IRIS SALDIVAR DO [facility] 08-14-2021 SARS-CoV-2 mRNA (tozinameran) vaccine IRIS SALDIVAR DO [facility] 07-24-2021 SARS-CoV-2 mRNA (tozinameran) vaccine IRIS SALDIVAR DO [facility] Payers Date Payer Category Payer Unknown [id number] 2.16.8 [id number] 1999 Unknown [id number] 2.16.8 [id number] 1999 Unknown [id number] 2.16.8 [id number] 1999 Unknown [id number] 2.16.8 [id number] 1999 Unknown [id number] 2.16.8 [id number] 1959 Unknown [id number] Social History Date Type Detail Facility Start: 03-14-2022 Tobacco smoking status Never s moked tobacco (finding) [facility] Sex Assigned At Sex [facility] Evaluation + Plan note Note Date & Type Note Facility Evaluation + Plan note No data available for this section [facility] Evaluation + Plan note Note Date & Type Note Facility Evaluation + Plan note Future Appointments Appointment Date:02/10/2023 10:30:00 AM Scheduled Provider:IRIS SALDIVAR DO Location:[facility] Appointment Type:PC Office Procedure [facility] Hospital Discharge instructions Note Date & Type Note Facility Hospital Discharge instructions No data available for this section [facility] Progress note Note Date & Type Note Facility Progress note No data available for this section [facility] Summary Purpose Family History No Family History [...] DATE CREATED AUTHOR AUTHOR'S ORGANIZ ATION 04/17/2020 [facility] DATE CREATED AUTHOR AUTHOR'S ORGANIZ ATION 04/17/2020 [facility] DATE CREATED AUTHOR AUTHOR'S ORGANIZ ATION 01/23/2023 [facility] ([place]) Patient Care team informatio n (unrecognized section and content) Care Team Personnel Name: IRIS SALDIVAR DO Position: P4 Physician - Primary Care Member Role: Primary Care Physician Address: Address: [address] [place] [address]- Care Team Related Persons Name: KATHIE KING Address: Home [address] [place], [place] [id number] Address: [facility] [address] [place] [address] [phone] FOR RECORDS PERTAINING TO PATIENTS WHO ARE [...] ON THE PRIMARY CLINICAL RECORDS. [facility] [employer] [facility]. provides no warranty or guarantee of the accuracy or completeness of information in this document.
[2023-12-04 06:55] VITALS: BP 125/78; PULSE 57; RESP 18; TEMP 36.4; O2SAT 99; BMI 24.1
[2023-12-04] MEDS: Lactated Ringers 1,000 ML 15 ML IV (07:02)
--- NOTE | 2023-12-04 07:58 | HP.PCM_ITS ---
History and Physical Date of Admission: 12/04/23 23-year-old male with no send medical history who presents to the emergency department for concern of food bolus stuck in his throat. Patient states he was eating sausage soup, evidence for spice he swallowed a piece of sausage and felt to get stuck. He has been trying to water however it immediately comes up. He cannot vomit. He is spitting out his saliva. He has had this happen in the past. Patient had a food bolus in 2018, had a EGD with a dilation on 2021 at [facility]. Patient has had minimal problems since then. Patient denies any chest pain or shortness of breath. He underwent an upper endoscopy was discovered to have foreign body. It was removed endoscopically. He comes back in today for repeat upper endoscopy. [facility] <JOSE Tobin - Last Filed: 10/07/23 14:08> [facility] Medical History MDD (major depressive disorder), single episode, severe Home Medications multivitamin with minerals 1 ea PO DAILY 07/27/19 [History Last Taken Unknown] Allergy/AdvReac Type Severity Reaction Status Date / Time No Known Allergies Allergy Verified 10/07/23 12:43 Family History (Updated 09/14/18 @ 10:33 by JOSE Damon) FatherHyperlipemia Social History Smoking Status: Never smoker [facility] <JOSE Tobin - Last Filed: 10/07/23 14:08> ROS ED ROS Narrative Constitutional: Negative for fever, chills, weight loss, weakness Eyes: Negative for vision loss, vision change, double vision ENT: Negative for any sore throat, ear pain, congestion Cardiovascular: Negative for any chest pain, tightness, palpitations Respiratory: Negative for any cough, sputum production, hemoptysis, dyspnea, dyspnea on exertion, orthopnea Gastrointestinal: Negative for any abdominal pain, nausea, vomiting, diarrhea, constipation, blood in stool, blood in vomit. Positive for difficulty swallowing : Negative for any urinary frequency, dysuria, retention, blood in urine Muscle skeletal: Negative for any myalgias, arthralgias, neck pain, back pain Neurological: Negative for any headache, syncope, paresthesias, dizziness Skin: Negative for any rashes, lumps, itching, abrasions, lacerations Psychiatric: Negative for any depression, anxiety, stress, suicidal ideation, homicidal ideation Hematologic: Negative for any easy bruising, excessive bruising, easy bleeding Allergies: Negative for any eczema, hives, rash EXAM <JOSE Tobin - Last Filed: 10/07/23 14:08> Physical Exam Narrative Exam Narrative: Vital signs reviewed. Patient is in no distress. Patient is able to spit up his saliva. HEET: Head normocephalic atraumatic, TMs clear bilaterally. Posterior pharynx is clear, moist mucous membranes. Nares clear bilaterally. Neck: Supple with no lymphadenopathy or tenderness. No signs of meningismus. Cardiac: Regular rate and rhythm no murmurs gallops or rubs, equal peripheral p ulses bilaterally. Respiratory: Lungs clear to auscultation bilaterally. No chest tenderness. Abdomen: Soft, nontender, nondistended. No abdominal bruit or pulsatile masses. No hepatosplenomegaly Extremities: No peripheral edema, no signs of gross trauma or deformity. Active full range of motion of all extremities. Neuro: Cranial nerves II through XII intact, no focal neurological deficits. Skin: Clean dry and intact with no rash, purpura, petechiae, vesicles or pustules. Backs/flank: No CVA tenderness, no midline spinal tenderness, no deformity. Psych: Normal mood and affect. No SI, HI or acute psychosis. Const Vital Signs: 10/07/2411:40 10/07/2412:15 Temperature 98 F Temperature Source Temporal Pulse Rate 72 Respiratory Rate 18 Respiratory Effort Normal Non-Labored Respiratory Pattern Normal Blood Pressure 151/113 H Blood Pressure Mean 125 Pulse Ox 100 Oxygen Delivery Method Room Air Positive well nourished and well developed General Appearance ED: well developed <Dr. Josh Smith DO - Last Filed: 10/07/23 14:56> Physical Exam Const Vital Signs: 10/07/2411:40 10/07/2412:15 Temperature 98 F Temperature Source Temporal Pulse Rate 72 Respiratory Rate 18 Respiratory Effort Normal Non-Labored Respiratory Pattern Normal Blood Pressure 151/113 H Blood Pressure Mean 125 Pulse Ox 100 Oxygen Delivery Method Room Air Treatment and Re-Evaluation :: Patient appears to be in no obvious distress. Patient presenting to the emergency department for food impaction to his esophagus. Differential diagnosis includes esophageal stricture, food impaction, esophageal injury. Patient will have an IV established, patient be given glucagon then tried Coca- Cola or other carbonated beverage. Will reevaluate. Patient was given glucagon, try to drink a carbonated beverage, this did not help. Patient continues to be unable to swallow his saliva, secretions. He is continually spitting out into a bag. I spoke with Dr. Red who is a social psychologist, he will come and evaluate the patient <Dr. Josh Smith, DO - Last Filed: 10/07/23 14:56> [facility] Treatment and Re-Evaluation :: Patient appears to be in no obvious distress. Patient presenting to the emergency department for food impaction to his esophagus. Differential diagnosis includes esophageal stricture, food impaction, esophageal injury. Patient will have an IV established, patient be given glucagon then tried Coca- Cola or other carbonated beverage. Will reevaluate. Patient was given glucagon, try to drink a carbonated beverage, this did not help. Patient continues to be unable to swallow his saliva, secretions. He is continually spitting out into a bag. I have personally performed a face to face assessment of the patient and have reviewed the MARGY Note. I performed a substantive portion of the visit including all aspects of the following. My mcdonald findings include: History is patient feels there is a meat/sausage bolus in the esophagus. This has happened before. Assessment & Plan Assessment/Plan (1) Foreign body: PLAN: He will undergo an upper endoscopy to reevaluate his upper GI tract. He was explained alternatives, risk, benefits include not withstanding bleeding, infection, sepsis, perforation, need for emergent urgent . He will have an ASA of 3. I have examined the patient and the H&P has been reviewed. There are no clinical changes since date of exam.
--- NOTE | 2023-12-04 08:00 | EGD_PTH ---
PATHOLOGY RESULTS PATIENT: RICKY KING LOC: EN U#:[id number] AGE/SX: 23/M ROOM: RE12/04/[address]: Dr. Too Red DO : 2000 BED: DIS: 12/04/2023 SPEC #: [id number] RECD: 12/04/23 10:14 STATUS: COSTA REWilliam #: [id number] TIFFANIE: 12/04/23 08:[address]: Too Red DEPT: SURGICAL PATHOLOGY RECD BY: Silva Goldman ENTERED: 12/04/23 11:51 SP TYPE: EGD BIOPSY JOSEF DR: Dr. Boaz Johns DO Tissues: Esophagus, NOS Esophagus, NOS Procedures: Special Stain Group II Surgery Specimen Level IV Alcian Blue/PAS (control) HEADER OPERATION: EGD biopsy PRE-OP DIAGNOSIS: Foreign body follow up TISSUE SUBMITTED: A - Distal esophagus, B - Random esophagus MICROSCOPIC DIAGNOSIS A. Distal esophagus, biopsy: Fragments of gastroesophageal mucosa with focal intestinal metaplasia (goblet cell metaplasia), consistent with Page's esophagus. Chronic inflammation. Negative for dysplasia. See comment. B. Esophagus, random biopsy: Fragments of benign squamous epithelium. SJ:mari 12/05/2023 COMMENT A. Mild increase of eosinophils (10-15/ high power field) are also noted, suspicious for eosinophilic esophagitis. Alcian blue/PAS stain with matched control is used in the evaluation of the specimen. Immunohistochemistry ([id number]) for P53 and Ki-67 will be performed and results will be reported separately. Clinical correlation and appropriate follow up are necessary. MICROSCOPIC DESCRIPTION Slides are reviewed. GROSS DESCRIPTION A - Received in fixative is one container labeled with the patient's name and designated distal esophagus. The specimen consists of two irregular fragments of light martin soft tissue that in aggregate measure 0.6 x 0.5 x 0.1 cm. The specimen is totally submitted in one cassette. B - Received in fixative is one container labeled with the patient's name and designated random esophagus. The specimen consists of multiple irregular fragments of light martin soft tissue that in aggregate measure 1.0 x 0.3 x 0.1 cm. The specimen is totally submitted in one cassette. / MARIZOL/ 12/04/2023 TC:5 CPT: 36983 x2, 05934
--- NOTE | 2023-12-04 08:20 | OP.EGD_ITS ---
Patient Name: Julian Dos Santos Procedure Date: 12/04/2023 8:02 AM Date of : 2000 Age: 23 Procedure: Upper GI endoscopy Indications: Dysphagia Providers: Too Red DO Medicines: Monitored Anesthesia Care Patient Profile: This is a 23 year old male. Refer to note in patient chart for documentation of history and physical. Patient has symptoms of chronic dysphagia. Complications: No immediate complications. Procedure: Pre-Anesthesia Assessment: - Prior to the procedure, a History and Physical was performed, and patient medications and allergies were reviewed. The patient is competent. The risks and benefits of the procedure and the sedation options and risks were discussed with the patient. All questions were answered and informed consent was obtained. Patient identification and proposed procedure were verified by the physician in the pre-procedure area. Mental Status Examination: alert and oriented. Prophylactic Antibiotics: The patient does not require prophylactic antibiotics. Prior Anticoagulants: The patient has taken no anticoagulant or antiplatelet agents. ASA Grade Assessment: II - A patient with mild systemic disease. After reviewing the risks and benefits, the patient was deemed in satisfactory condition to undergo the procedure. The anesthesia plan was to use monitored anesthesia care (MAC). Immediately prior to administration of medications, the patient was re-assessed for adequacy to receive sedatives. The heart rate, respiratory rate, oxygen saturations, blood pressure, adequacy of pulmonary ventilation, and response to care were monitored throughout the procedure. The physical status of the patient was re-assessed after the procedure. After obtaining informed consent, the endoscope was passed under direct vision. Throughout the procedure, the patient's blood pressure, pulse, and oxygen saturations were monitored continuously. The gastroscope was introduced through the mouth, and advanced to the second part of duodenum. The upper GI endoscopy was accomplished without difficulty. The patient tolerated the procedure well. Scope In: 8:11:55 AM Scope Out: 8:14:55 AM Total Procedure Duration Time 0 hours 3 minutes 0 seconds Findings: The examined esophagus was normal. Biopsies were obtained from the proximal and distal esophagus with cold forceps for histology of suspected eosinophilic esophagitis. The Z-line was irregular and was found 40 cm from the incisors. Biopsies were taken with a cold forceps for histology. Verification of patient identification for the specimen was done. Estimated blood loss was minimal. The entire examined stomach was normal. The first portion of the duodenum was normal. Impression: - Normal esophagus. - Z-line irregular, 40 cm from the incisors. Biopsied. - Normal stomach. - Normal first portion of the duodenum. - Biopsies were taken with a cold forceps for evaluation of eosinophilic esophagitis. Recommendation: - Discharge patient to home. - Resume previous diet. - Continue present medications. - Await pathology results. Procedure Code(s): --- Professional --- 06981, Esophagogastroduodenoscopy, flexible, transoral; with biopsy, single or multiple CPT copyright 2021 [employer]. All rights reserved. The codes documented in this report are preliminary and upon highway painter helper review may be revised to meet current compliance requirements. Too Red DO 12/04/2023 8:20:25 AM This report has been signed electronically. Number of Addenda: 0 Note Initiated On: 12/04/2023 8:02 AM
--- NOTE | 2023-12-04 08:21 | OP.CCLET_ITS ---
12/04/2023 Boaz Johns Do Re : Upper GI endoscopy procedure for Julian Dos Santos Dear Dr. Johns This procedure was performed on Monday, December 04, 2023. My impressions and recommendations are as follows: Impressions : - Normal esophagus. - Z-line irregular, 40 cm from the incisors. Biopsied. - Normal stomach. - Normal first portion of the duodenum. - Biopsies were taken with a cold forceps for evaluation of eosinophilic esophagitis. Recommendations : - Discharge patient to home. - Resume previous diet. - Continue present medications. - Await pathology results. My findings are described in the full procedure note, which is enclosed. If I can be of further assistance, please feel free to contact me at . Sincerely, Too Red, 12/04/2023 8:20:25 AM This report has been signed electronically.
[2023-12-04 08:23] VITALS: BP 125/78; BP 95/56; PULSE 83; RESP 18; TEMP 36.1; O2SAT 97
[2023-12-04 08:25] VITALS: BP 103/59; BP 125/78; PULSE 82; RESP 16; O2SAT 96
[2023-12-04 08:30] VITALS: BP 110/63; BP 125/78; PULSE 70; RESP 16; O2SAT 94
[2023-12-04 08:32] VITALS: BP 110/63; BP 125/78; PULSE 65; RESP 16; TEMP 36.7; O2SAT 98
[2023-12-04 08:45] VITALS: BP 125/78
== END 2023-12-04 08:46 | disposition home or self-care (01) ==
LOC: EN 06:36 → AC 06:37
PROVIDERS: Visit Provider Internal Medicine Gastroenterology
PROC: 0DJ08ZZ Inspection of Upper Intestinal Tract, Via Natural or Artificial Opening Endoscopic (ICD-10-PCS; CPT 43235; principal; 2023-12-04 07:55)
DX: R13.10 Dysphagia, unspecified (principal)
CPT/HCPCS: 43239; 88305; 88313; 88341; 88342; J7120; J2405